=== PATIENT | female | born 1985 | race Caucasian/White ===

== ENCOUNTER 2024-03-24 12:57 | Outpatient (CLI) | payer MEDICAID, SELFPAY ==
--- NOTE | 2024-03-24 13:07 | XRR_ITS ---
PROCEDURE INFORMATION: Exam: XR Lumbosacral Spine Exam date and time: 03/24/2024 1:12 PM Age: 38 years old Clinical indication: Low back pain; Patient HX: Back pain since Feb 03 2024, scoliosis TECHNIQUE: Imaging protocol: Radiologic exam of the lumbosacral spine. Views: 4 or 5 views. COMPARISON: No relevant prior studies available. FINDINGS: Bones/joints: Anatomic alignment. Well maintained disc spaces. No fracture, lytic, or sclerotic bone lesion. No acute fracture. Normal alignment. Soft tissues: Unremarkable. Other findings: Mild right-sided curvature. XR/XR lumbar spine min 4V 10089 IMPRESSION: No acute findings.
== END 2024-03-24 12:58 | disposition home or self-care (01) ==
PROVIDERS: PCP Nurse Practitioner Family; Visit Provider Nurse Practitioner Family
DX: M54.50 Low back pain, unspecified (principal); M43.8X6 Other specified deforming dorsopathies, lumbar region
CPT/HCPCS: 72110

== ENCOUNTER 2024-05-11 15:37 | Emergency (ER) | payer MEDICAID, SELFPAY ==
[2024-05-11 15:52] VITALS: BP 176/121; PULSE 87; RESP 16; TEMP 36.8; O2SAT 99
--- NOTE | 2024-05-11 15:53 | ECG_ITS ---
[facility] Test Date: 2024-05-11 Pat Name: Michelle Blackwell Department: Room: Gender: Female [employer]il[employer]: : 1985 Requested By: Tosin Lara Order Number: [id number] Garnett MD: Dayne Saleem M.D. Measurements Intervals [place] Rate: 93 P: 213 TX: 330 QRS: 46 QRSD: 85 T: 35 QT: 375 QTc: 467 Interpretive Statements SINUS RHYTHM. Baseline artifact Electronically Signed On 05-11-2024 16:11:22 CDT by Dayne Saleem M.D. [email or web address]/[id number] f
--- NOTE | 2024-05-11 16:09 | XR_ITS ---
WS: [id number] XR chest 1V portable [id number] REASON FOR EXAM: Weakness FINDINGS: The heart and the mediastinum are within normal limits. Calcified granulomas disease in both thoraces. No acute or subacute pulmonary parenchymal or pleural abnormality is seen. Mild degenerative spondylosis in the mid and lower thoracic spine. XR/XR chest 1V portable [id number] IMPRESSION: No acute or subacute chest abnormality.
--- NOTE | 2024-05-11 16:09 | CTR_ITS ---
PROCEDURE INFORMATION: Exam: CT Head Without Contrast Exam date and time: 05/11/2024 4:22 PM Age: 39 years old Clinical indication: Altered mental status/memory loss; Additional info: Encephalopathy, altered mental status TECHNIQUE: Imaging protocol: Computed tomography of the head without contrast. Radiation optimization: All CT scans at this facility use at least one of these dose optimization techniques: automated exposure control; mA and/or kV adjustment per patient size (includes targeted exams where dose is matched to clinical indication); or iterative reconstruction. COMPARISON: No relevant prior studies available. RADIATION DOSE METRICS: Total DLP (mGy-cm): 1023 FINDINGS: Brain: No acute intracranial hemorrhage. No confluent lobar infarct. No mass effect. Cerebral ventricles: The ventricles and sulci are normal in size and shape for the patient's stated age. Paranasal sinuses: Visualized sinuses are unremarkable. No fluid levels. Mastoid air cells: Visualized mastoid air cells are well aerated. Bones: No acute calvarial fracture. Soft tissues: Visualized soft tissues are unremarkable. CT/CT head wo con* [id number] IMPRESSION: No acute intracranial abnormality. If symptoms persist, consider further evaluation with MRI, if MRI is clinically safe to obtain.
--- NOTE | 2024-05-11 16:12 | W.ED.DIZZY ---
HPI - Dizziness General: Chief Complaint: Dizziness Stated Complaint: Hultnations Time Seen by Provider: 05/11/24 15:49 History of Present Illness: HPI Narrative: 39-year-old female with a history of hypertension who has not been taking her medications reviewed presents to the emergency room with an episode of altered mental status. She said suddenly she was hearing noises that were not there and became confused and could not understand who she was talking to on the phone with. By the time she arrived this is mostly resolved and she just now feels fatigued. She is somewhat hypertensive with a blood pressure of 176/121 on presentation. She says they got her blood pressure medications around so she has not been take anything. She has no focal motor deficits. She did states she felt the burning in her face around her mouth and down her chest. Review of Systems Narrative: Constitutional symptoms: Negative except as documented in HPI. Skin symptoms: Negative except as documented in HPI. Eye symptoms: Negative except as documented in HPI. ENMT symptoms: Negative except as documented in HPI. Respiratory symptoms: Negative except as documented in HPI. Cardiovascular symptoms: Negative except as documented in HPI. Gastrointestinal symptoms: Negative except as documented in HPI. Genitourinary symptoms: Negative except as documented in HPI. Musculoskeletal symptoms: Negative except as documented in HPI. Neurologic symptoms: Negative except as documented in HPI. Psychiatric symptoms: Negative except as documented in HPI. Endocrine symptoms: Negative except as documented in HPI. [facility] Female Reproductive History: Date of last menstrual period: 04/25/24 Physical Exam Narrative: EXAM NARRATIVE: General: Alert, no acute distress. Skin: Warm, dry. Head: Normocephalic, atraumatic. Neck: Supple, trachea midline. Eye: Extraocular movements are intact. Ears, nose, mouth and throat: mucosa moist. Cardiovascular: Regular, Normal peripheral perfusion. Respiratory: Lungs are clear to auscultation, respirations are non-labored, breath sounds are equal, Symmetrical chest wall expansion. Gastrointestinal: Soft, Nontender, Non distended Musculoskeletal: Normal ROM, no deformity. Neurological: Alert and oriented, No focal neurological deficit observed. Psychiatric: Cooperative, appropriate mood & affect. Course Vital Signs: Vital signs: Vital Signs Temperature 98.2 F 05/11/24 15:52 Pulse Rate 87 05/11/24 15:52 Respiratory Rate 16 05/11/24 15:52 Blood Pressure 176/121 05/11/24 15:52 Pulse Oximetry 99 05/11/24 15:52 Oxygen Delivery Me thod Room Air 05/11/24 15:52 MDM - Dizziness Medical Decision Making Medical decision making: Differential diagnosis including but not limited to and based on the above HPI, review of systems and physical exam: In this patient with altered mental status: Stroke. Hypoglycemia. Metabolic encephalopathy. Infections such as pneumonia, urinary tract infection, Covid-19, Influenza. Electrolyte abnormalities such as hypernatremia. Renal failure / uremia. Hepatic encephalopathy. Hypoxemia. Hypercapnic respiratory failure. Psychosis. Drug or alcohol intoxication. Medication overdose. Orders placed to evaluate differential diagnosis based on the above differential, HPI and physical exam EKG: Normal sinus rhythm, No ST-T changes, no ectopy, normal GA & QRS intervals, This was reviewed and interpreted by myself the ER physician Lab Review: Laboratory results were reviewed and interpreted by myself the emergency room physician. Lab work is unremarkable. No leukocytosis. No anemia. BUN and creatinine are normal. CT head: No acute intracranial process. no intracranial hemorrhage, no evidence of infarct. no evidence of acute fracture.This was reviewed and interpreted by myself the ER physician. Chest x-ray: No acute process. No infiltrate. No pneumothorax. This was reviewed and interpreted by myself the ER physician. I reviewed the patient's medical record. Reexamination: Patient remained stable. No increased work of breathing. No altered mental status. No focal motor deficits. Symptoms have completely resolved and blood pressure has normalized. She now says she feels fatigued. We discussed possible explanations which could be untreated blood pressure but it did resolve spontaneously and may be secondary to anxiety or something else. We did discuss that head CT looked normal and her heart looked okay. Chest x-ray looked okay. Assessment and plan: Noncardiac chest pain - Discharged home - Discussed findings and plan with patient. Answered any questions. - All laboratory values were reviewed and interpreted personally by myself, the ER physician - All imaging was reviewed and interpreted personally by myself, the ER physician. - Evaluation and treatment of this problem were appropriate in the emergency setting Lab Data 05/11/24 16:18 05/11/24 16:18 Radiology Impressions Chest X-Ray 05/11/24 16:09 IMPRESSION: No acute or subacute chest abnormality. Head CT 05/11/24 16:09 IMPRESSION: No acute intracranial abnormality. If symptoms persist, consider further evaluation with MRI, if MRI is clinically safe to obtain. Laboratory Results WBC 7.05 10^3/uL (3.29-11.43) 05/11/24 16:18 RBC 4.65 10^6/uL (3.85-5.65) 05/11/24 16:18 Hgb 11.70 g/dL (11.27-16.99) 05/11/24 16:18 Hct 37.6 % (36-47) 05/11/24 16:18 MCV 80.9 fl (85-98) L 05/11/24 16:18 MCH 25.2 pg (27-33) L 05/11/24 16:18 MCHC 31.1 g/dL (30-55) 05/11/24 16:18 RDW 13.5 % (12.1-15.1) 05/11/24 16:18 Plt Count 379 10^3/cmm (157-399) 05/11/24 16:18 MPV 9.5 fL (7.4-10.4) 05/11/24 16:18 Neut % (Auto) 61.5 % 05/11/24 16:18 Lymph % (Auto) 32.3 % 05/11/24 16:18 [place] % (Auto) 4.5 % 05/11/24 16:18 Eos % (Auto) 1.0 % 05/11/24 16:18 Baso % (Auto) 0.4 % 05/11/24 16:18 Neut # (Auto) 4.33 10^3/uL (1.8-7.7) 05/11/24 16:18 Lymph # (Auto) 2.3 10^3/uL (0.8-4.8) 05/11/24 16:18 [place] # (Auto) 0.3 10^3/uL (0.2-0.9) 05/11/24 16:18 Eos # (Auto) 0.1 10^3/uL (0.0-0.8) 05/11/24 16:18 Baso # (Auto) 0.0 10^3/uL (0.0-0.1) 05/11/24 16:18 Nucleated RBC % (auto) 0 % 05/11/24 16:18 Nucleated RBCs # 0.0 /100WBC 05/11/24 16:18 Sodium 140 mmol/L (136-145) 05/11/24 16:18 Potassium 3.7 mmol/L (3.5-5.1) 05/11/24 16:18 Chloride 105 mmol/L (98-107) 05/11/24 16:18 Carbon Dioxide 23 mmol/L (22-29) 05/11/24 16:18 Anion Gap 15.7 (5-19) 05/11/24 16:18 BUN 11 mg/dL (6-20) 05/11/24 16:18 Creatinine 0.7 mg/dL (0.5-0.9) 05/11/24 16:18 GFR Calculation 92.2 mL/min (90-130) 05/11/24 16:18 Glucose 124 mg/dL (65-115) H 05/11/24 16:18 Calculated Osmolality 291 mOsm/kg (285-295) 05/11/24 16:18 Calcium 8.7 mg/dL (8.5-10.5) 05/11/24 16:18 Total Bilirubin 0.3 mg/dL (0.15-1.2) 05/11/24 16:18 AST 14 U/L (0-32) 05/11/24 16:18 ALT 10 U/L (0-33) 05/11/24 16:18 Alkaline Phosphatase 66 U/L (35-105) 05/11/24 16:18 Troponin T Baseline < 6 ng/L (0-10) 05/11/24 16:18 C-Reactive Protein 3.0 mg/L (0.0-4.9) 05/11/24 16:18 Total Protein 7.6 g/dL (6.6-8.7) 05/11/24 16:18 Albumin 3.7 g/dL (3.5-5.2) 05/11/24 16:18 Globulin 3.9 g/dL (1.3-4.6) 05/11/24 16:18 All radiology interpretation(s) finalized by discharge Discharge Plan Discharge Patient Disposition: Home Clinical Impression: Altered mental status, Accelerated hypertension Condition: Stable Prescriptions: No Action tramadol 50 mg tablet 50 mg PO BID PRN omeprazole 40 mg capsule,delayed release(DR/EC) 40 mg PO DAILY cyclobenzaprine 10 mg tablet 10 mg PO TID alprazolam [Xanax] 0.5 mg tablet 0.5 mg PO BID escitalopram oxalate [Lexapro] 10 mg tablet 10 mg PO DAILY ibuprofen 800 mg tablet 800 mg PO TID aspirin 325 mg tablet 325 mg PO DAILY Discharge Orders: Discharge ED (Routine); Ordered 05/11/24 Ordered By: Tosin Castellon Referrals: Sean,TORRES Jarvis [Primary Care Provider] - Discharge Diet: Usual diet Discharge Activity: Increase activity as tolerated Patient Instructions: Hypertension (ED), Altered Mental Status (ED) Activity Restrictions/Additional Instructions: Thank you for choosing [facility] for your healthcare needs today. Please realize this is an emergency room and that we are providing you with a medical screening exam and this may not be complete and all inclusive of all the testing and or work up that you may need to determine your ailment or severity of your illness. You have been screened and evaluated and felt safe for discharge. Health conditions do change or evolve sometimes and as such it is important that you follow up with your Primary Doctor to be re checked, 3-5 days is a general good time frame for follow up. You are always welcome to return to the ED for re assessment if your symptoms are worsening or you have new concerns Coding Level of Care Code ED Clay Artist for Lizette Lopez
[2024-05-11 16:25] LABS: Basophils % 0.4 %; Eosinophils # 0.1 10^3/uL (0.0-0.8); Hematocrit 37.6 % (36-47); Lymphocytes # 2.3 10^3/uL (0.8-4.8); Lymphocytes % 32.3 %; Mean Corpuscular HGB Conc 31.1 g/dL (30-55); Mean Corpuscular Hemoglobin 25.2 pg (27-33); Mean Corpuscular Volume 80.9 fl (85-98); Mean Platelet Volume 9.5 fL (7.4-10.4); Monocytes # 0.3 10^3/uL (0.2-0.9); Monocytes % 4.5 %; Neutrophils # 4.33 10^3/uL (1.8-7.7); Neutrophils % 61.5 %; Nucleated Red Blood Cells % 0 %; Platelet Count 379 10^3/cmm (157-399); Red Blood Count 4.65 10^6/uL (3.85-5.65); Red Cell Distribution Width 13.5 % (12.1-15.1); White Blood Count 7.05 10^3/uL (3.29-11.43)
[2024-05-11 16:46] LABS: Troponin(5th) Baseline < 6 ng/L (0-10)
[2024-05-11 16:47] LABS: Alanine Aminotransferase 10 U/L (0-33); Albumin Level 3.7 g/dL (3.5-5.2); Alkaline Phosphatase 66 U/L (35-105); Anion Gap 15.7 (5-19); Aspartate Amino Transferase 14 U/L (0-32); Blood Urea Nitrogen 11 mg/dL (6-20); Calcium 8.7 mg/dL (8.5-10.5); Carbon Dioxide 23 mmol/L (22-29); Chloride 105 mmol/L (98-107); Creatinine Clr Calc Pharmacy 87.9922; Globulin 3.9 g/dL (1.3-4.6); Glomerular Filtration Rate 92.2 mL/min (90-130); Glucose 124 mg/dL (65-115); Osmolality Calculated 291 mOsm/kg (285-295); Potassium 3.7 mmol/L (3.5-5.1); Sodium 140 mmol/L (136-145); Total Bilirubin 0.3 mg/dL (0.15-1.2); Total Protein 7.6 g/dL (6.6-8.7)
[2024-05-11 17:17] VITALS: BP 148/83; O2SAT 96
[2024-05-11 17:26] VITALS: BP 148/83
== END 2024-05-11 17:30 | disposition home or self-care (01) ==
PROVIDERS: Emergency Provider Emergency Medicine; PCP Nurse Practitioner Family
DX: R41.82 Altered mental status, unspecified (principal); I10 Essential (primary) hypertension; Z79.82 Long term (current) use of aspirin
CPT/HCPCS: 36415; 70450; 71045; 80053; 84484; 85025; 86140; 93005; 99285

== ENCOUNTER 2024-08-23 13:16 | Outpatient (CLI) | payer MEDICAID, SELFPAY ==
--- NOTE | 2024-08-23 13:20 | MM_ITS ---
WS: [id number] BILATERAL 3D TOMOSYNTHESIS DIGITAL SCREENING MAMMOGRAPHY WITH CAD CLINICAL INFORMATION: SCREENING HISTORY: Screening mammogram. No current complaints. COMPARISON: Baseline TECHNIQUE: Bilateral CC and MLO views. FINDINGS: Scattered fibroglandular densities bilaterally. No suspicious focal mass, asymmetry, calcifications, or architectural distortion. No evidence of malignancy. MM/MM scr BI tomosynthesis [id number] IMPRESSION: DENSITY: There are scattered areas of fibroglandular density. BI-RADS: 1 - Negative. FOLLOW UP: 1 Year Follow-up Recommend return to annual screening mammography.
== END 2024-08-23 13:17 | disposition home or self-care (01) ==
LOC: MOBLMAM 13:17
PROVIDERS: PCP Nurse Practitioner Family; Visit Provider Nurse Practitioner Family
DX: Z12.31 Encounter for screening mammogram for malignant neoplasm of breast (principal); R92.323 Mammographic fibroglandular density, bilateral breasts
CPT/HCPCS: 77063; 77067

== ENCOUNTER 2024-08-25 10:29 | Outpatient (CLI) | payer MEDICAID, SELFPAY ==
--- NOTE | 2024-08-25 11:00 | MR_ITS ---
WS: [id number] MRI LUMBAR SPINE NONCONTRAST HISTORY: M54.9 - Dorsalgia, unspecified, bilateral lower extremity pain. COMPARISON: None available. TECHNIQUE: Sagittal and axial multisequence imaging is submitted. Mild LEFT curvature lumbar spine. Posterior alignment is otherwise normal. Less than 2 mm retrolisthe sis of L4. Normal lumbar alignment with no compression fractures or marrow edema. Disc spaces and vertebral body heights are well-preserved. Conus terminates normally at L1-2 disc level. L1-L2: Mild LEFT facet arthritis. No stenosis. L2-L3: Bilateral facet joint arthropathy, RIGHT greater than LEFT. No stenosis. L3-L4: Mild annular disc bulge with a small LEFT foraminal disc protrusion and annular fissure which is contacting the exiting LEFT L3 nerve root. Mild LEFT foraminal stenosis. L4-L5: Mild annular disc bulging encroaching upon the ventral thecal sac. Bilateral foraminal disc pr otrusions. Foraminal disc protrusions contact the exiting L4 nerve roots. Annular fissure associated with the LEFT disc protrusion. Mild bilateral foraminal stenosis. Facet joint arthropathy with fluid in the facet joints. L5-S1: LEFT paracentral disc protrusion contacts the LEFT S1 nerve root in the subarticular recess. T here is just slight displacement of the nerve root with no foraminal stenosis. Paravertebral soft tissues are normal. MR/MR lumbar spine wo con* [id number] IMPRESSION: 1. L3-4: LEFT foraminal disc protrusion with annular fissure contacts the exit ing LEFT L3 nerve root with mild LEFT foraminal stenosis. 2. L4-5: Bilateral foraminal disc protrusions contact the exiting L4 nerve justen ts. Mild bilateral foraminal stenosis. 3. L5-S1: LEFT paracentral disc protrusion contacts the LEFT S1 nerve root.
== END 2024-08-25 10:30 | disposition home or self-care (01) ==
LOC: RAD 10:29
PROVIDERS: PCP Nurse Practitioner Family; Visit Provider Orthopaedic Surgery
DX: M47.896 Other spondylosis, lumbar region (principal); M51.24 Other intervertebral disc displacement, thoracic region; M51.26 Other intervertebral disc displacement, lumbar region
CPT/HCPCS: 72148

== ENCOUNTER 2024-10-05 06:30 | Outpatient (RCR) | payer MEDICAID, SELFPAY | END 2024-11-04 23:59 | disposition home or self-care (01) | LOC: TPT 06:30 | PROVIDERS: Visit Provider Orthopaedic Surgery | DX: M54.9 Dorsalgia, unspecified (principal); G89.29 Other chronic pain | CPT/HCPCS: 97110; 97161 ==

== ENCOUNTER 2024-11-05 06:30 | Outpatient (RCR) | payer MEDICAID, SELFPAY | END 2024-12-02 23:59 | disposition home or self-care (01) | LOC: TPT 06:30 | PROVIDERS: PCP Nurse Practitioner Family; Visit Provider Orthopaedic Surgery | DX: M54.9 Dorsalgia, unspecified (principal); G89.29 Other chronic pain | CPT/HCPCS: 97110 ==

== ENCOUNTER → 2025-06-29 10:47 | Outpatient (BNVA) | payer MEDICAID, SELFPAY | PROVIDERS: PCP Nurse Practitioner Family; Referring Provider Nurse Practitioner Family; Visit Provider Nurse Practitioner Women's Health | DX: Z12.4 Encounter for screening for malignant neoplasm of cervix (principal) | CPT/HCPCS: 87624 ==